=== PATIENT | female | born 1945 | race Caucasian/White ===

== ENCOUNTER 2017-12-14 23:33 | Emergency (ER) | payer SELFPAY ==
[~2017-12-14] VITALS: Ht 157.5 cm; Wt 74.8 kg
[2017-12-14 23:50] VITALS: Ht 157.5 cm; Wt 74.8 kg
[2017-12-15 00:33] LABS: BASOPHIL % 0.2 % (0-2); PLATELET COUNT 240 x10^3mcL (130-400); RED CELL DISTRIBUTION WIDTH 14.5 % (11.5-14.5)
[2017-12-15 00:41] LABS: CALCIUM 8.4 mg/dL (8.5-10.1); CARBON DIOXIDE 30.5 mmol/L (21-32); CHLORIDE SERUM 103 mmol/L (98-107); CREATININE SERUM 0.7 mg/dL (0.6-1.0); GLUCOSE SERUM 149 mg/dL (74-106); POTASSIUM SERUM 4.5 mmol/L (3.5-5.1); SODIUM SERUM 140 mmol/L (136-145)
[2017-12-15 00:45] LABS: ALBUMIN 3.7 g/dL (3.4-5.0); ALKALINE PHOSPHATASE 121 U/L (46-116); ALT/SGPT 20 U/L (14-59); AST/SGOT 20 U/L (15-37); BILIRUBIN TOTAL 0.3 mg/dL (0.20-1.00); LIPASE 506 IU/L (73-393); TOTAL PROTEIN, SERUM 7.4 g/dL (6.4-8.2)
[2017-12-15 01:50] VITALS: BP 145/72
== END 2017-12-15 01:50 | disposition home or self-care (01) ==
LOC: ED 23:33
PROVIDERS: Emergency Medicine
DX: R10.13 Epigastric pain (principal); R11.0 Nausea; Z90.49 Acquired absence of other specified parts of digestive tract
CPT/HCPCS: 36415

== ENCOUNTER 2019-05-27 19:58 | Inpatient (IN) | payer SELFPAY ==
[~2019-05-27] VITALS: Ht 162.6 cm; Wt 78.0 kg
[2019-05-27 20:36] VITALS: Ht 162.6 cm; Wt 78.0 kg
[2019-05-27 21:25] LABS: microscopic required? YES; urine erythrocyte 1+ (NEGATIVE)
[2019-05-27 21:31] LABS: BASOPHIL % 0.2 % (0-2); PLATELET COUNT 184 x10^3mcL (130-400); RED CELL DISTRIBUTION WIDTH 13.5 % (11.5-14.5)
[2019-05-27 21:40] LABS: AMPHETAMINE QUAL UR NONE DETECTED (See below)
[2019-05-27 21:44] LABS: CALCIUM 8.6 mg/dL (8.5-10.1); CARBON DIOXIDE 29.2 mmol/L (21-32); CHLORIDE SERUM 103 mmol/L (98-107); CREATININE SERUM 0.8 mg/dL (0.6-1.0); GLUCOSE SERUM 105 mg/dL (74-106); POTASSIUM SERUM 3.7 mmol/L (3.5-5.1); SODIUM SERUM 140 mmol/L (136-145)
[2019-05-27 21:56] LABS: ALBUMIN 3.8 g/dL (3.4-5.0); ALKALINE PHOSPHATASE 85 U/L (46-116); ALT/SGPT 140 U/L (14-59); AMYLASE 111 U/L (25-115); AST/SGOT 222 U/L (15-37); BILIRUBIN TOTAL 0.38 mg/dL (0.20-1.00); CHOLESTEROL 173 mg/dL (<200); HDL CHOLESTEROL 39 mg/dL (40-60); LIPASE 485 IU/L (73-393); T4(THYROXINE) 9.3 ug/dL (4.7-13.3); TOTAL PROTEIN, SERUM 8.1 g/dL (6.4-8.2)
[2019-05-27 23:40] LABS: CHOLESTEROL/HDL RATIO 4.6
[2019-05-28 01:21] VITALS: BP 104/32
[2019-05-28 05:51] VITALS: BP 125/48
[2019-05-28 07:07] LABS: BASOPHIL % 0.1 % (0-2); PLATELET COUNT 170 x10^3mcL (130-400); RED CELL DISTRIBUTION WIDTH 13.6 % (11.5-14.5)
[2019-05-28 07:34] LABS: CARBON DIOXIDE 23.3 mmol/L (21-32); CHLORIDE SERUM 105 mmol/L (98-107); CREATININE SERUM 0.8 mg/dL (0.6-1.0); GLUCOSE SERUM 243 mg/dL (74-106); PHOSPHOROUS 3.3 mg/dL (2.5-4.9); POTASSIUM SERUM 3.5 mmol/L (3.5-5.1); SODIUM SERUM 140 mmol/L (136-145)
[2019-05-28 08:18] LABS: CHOLESTEROL/HDL RATIO 4.5
[2019-05-28 08:38] VITALS: BP 124/49
[2019-05-28 12:28] VITALS: BP 126/52
[2019-05-28 18:00] VITALS: BP 162/54
[2019-05-28 19:53] VITALS: BP 152/53
[2019-05-29 04:47] VITALS: BP 135/50
[2019-05-29 07:05] LABS: BASOPHIL % 0.2 % (0-2); PLATELET COUNT 173 x10^3mcL (130-400); RED CELL DISTRIBUTION WIDTH 13.8 % (11.5-14.5)
[2019-05-29 07:26] LABS: CALCIUM 8.1 mg/dL (8.5-10.1); CHLORIDE SERUM 111 mmol/L (98-107); CREATININE SERUM 0.8 mg/dL (0.6-1.0); GLUCOSE SERUM 112 mg/dL (74-106); MAGNESIUM 2.1 mg/dL (1.8-2.4); PHOSPHOROUS 2.6 mg/dL (2.5-4.9); POTASSIUM SERUM 3.7 mmol/L (3.5-5.1); SODIUM SERUM 145 mmol/L (136-145)
[2019-05-29 07:36] LABS: CARBON DIOXIDE 26.3 mmol/L (21-32)
[2019-05-29 08:20] VITALS: BP 154/74
[2019-05-29 11:44] VITALS: BP 156/54
[2019-05-29 16:13] VITALS: BP 171/61
[2019-05-29 20:38] VITALS: BP 155/62
[2019-05-30 05:43] VITALS: BP 125/37
[2019-05-30 06:28] LABS: BASOPHIL % 0.3 % (0-2); PLATELET COUNT 165 x10^3mcL (130-400); RED CELL DISTRIBUTION WIDTH 13.6 % (11.5-14.5)
[2019-05-30 06:58] LABS: CALCIUM 8.2 mg/dL (8.5-10.1); CARBON DIOXIDE 28.6 mmol/L (21-32); CHLORIDE SERUM 103 mmol/L (98-107); CREATININE SERUM 0.8 mg/dL (0.6-1.0); GLUCOSE SERUM 109 mg/dL (74-106); LIPASE 468 IU/L (73-393); POTASSIUM SERUM 3.1 mmol/L (3.5-5.1); SODIUM SERUM 141 mmol/L (136-145)
[2019-05-30 09:16] VITALS: BP 130/54
[2019-05-30] MEDS ORDERED: TAM75 PO (10:23)
[2019-05-30] MEDS ORDERED: HYDROCHLOROTHIA25 MG PO (10:24)
[2019-05-30 10:34] VITALS: BP 130/54
== END 2019-05-30 12:01 | disposition home or self-care (01) | DRG 193 ==
LOC: ED 19:58 → DU 22:22
PROVIDERS: Emergency Medicine; ADMIT Family Medicine
DX: J10.1 Influenza due to other identified influenza virus with other respiratory manifestations (principal); J96.00 Acute respiratory failure, unspecified whether with hypoxia or hypercapnia; K85.90 Acute pancreatitis without necrosis or infection, unspecified; I10 Essential (primary) hypertension; E11.9 Type 2 diabetes mellitus without complications; R74.0 Nonspecific elevation of levels of transaminase and lactic acid dehydrogenase [LDH]; E78.5 Hyperlipidemia, unspecified; N28.1 Cyst of kidney, acquired; Z79.84 Long term (current) use of oral hypoglycemic drugs; Z90.49 Acquired absence of other specified parts of digestive tract; Z79.899 Other long term (current) drug therapy
CPT/HCPCS: 82962; 83880; 87804; 94150; G0378; J1956; J2930; J7030; J7613; J7620; J7644; Q0092